=== PATIENT | male | born 1930 ===

== ENCOUNTER 2017-05-30 13:36 | Emergency (ER) | payer MEDICARE, BC ==
--- NOTE | 2017-05-30 16:00 | UC ---
Skin Complaint HPI - HPI Summary HPI Summary: 86 YEAR OLD MALE PRESENTS WITH A RASH ON HIS LEFT LOWER LEG. - History of Current Complaint Chief Complaint: [employer] Time Seen by Provider: 05/30/17 15:56 Stated Complaint: SKIN COMPLAINT - Allergy/Home Medications Allergies/Adverse Reactions: Allergies Allergy/AdvReac Type Severity Reaction Status Date / Time No Known Allergies Allergy Verified 08/04/14 16:13 Home Medications: Home Medications Apixaban* [Eliquis*] 5 mg PO BID 05/30/17 [History Confirmed 05/30/17] Hydrochlorothiazide TAB* [Hydrodiuril TAB*] 25 mg PO BID 05/30/17 [History Confirmed 05/30/17] Ramipril CAP* [Altace CAP*] 1 tab PO DAILY 05/30/17 [History Confirmed 05/30/17] Review of Systems Constitutional: Negative Skin: Rash, Other - LEFT LOWER LEG Eyes: Negative ENT: Negative Respiratory: Negative Cardiovascular: Negative Gastrointestinal: Negative Genitourinary: Negative Motor: Negative Neurovascular: Negative Musculoskeletal: Negative Neurological: Negative Psychological: Negative All Other Systems Reviewed And Are Negative: Yes PMH/Surg Hx/FS Hx/Imm Hx - Surgical History Surgical History: Yes Surgery Procedure, Year, and Place: bilat knee replacement - Social History Alcohol Use: None Substance Use Type: None Smoking Status (MU): Former Smoker When Did the Patient Quit Smoking/Using Tobacco: 60 years ago Household Exposure Type: Cigarettes Physical Exam Triage Information Reviewed: Yes Vital Signs: Initial Vital Signs Temp 36.5 C 05/30/17 15:38 Pulse 66 05/30/17 15:38 Resp 16 05/30/17 15:38 BP 133/59 05/30/17 15:38 Pulse Ox 97 05/30/17 15:38 Eye Exam: Normal ENT Exam: Normal Dental Exam: Normal Neck exam: Normal Neck: Positive: 1 Respiratory Exam: Normal Cardiovascular Exam: Normal Abdominal Exam: Normal Musculoskeletal Exam: Normal Neurological Exam: Normal Psychological Exam: Normal Skin: Positive: rashes - LEFT LOWER LEG Course/Dx - Differential Diagnoses - Skin Complaint Differential Diagnoses: Erythema Multiforme, Tick Born Illness - Diagnoses Provider Diagnoses: RASH LEFT LOWER LEG. INSECT BITE Discharge - Discharge Plan Condition: Stable Disposition: HOME Prescriptions: DOXYcycline CAP(*) [DOXYcycline 100MG CAP(*)] 100 mg PO BID #56 cap Patient Education Materials: Lyme Disease (ED), Tick Bite (ED) Referrals: Rodrigo Whalen MD [Primary Care Provider] - If Needed
[2017-05-30 16:05] VITALS: BP 133/59
== END 2017-05-30 16:27 | disposition home or self-care (01) ==
LOC: UCCORT 13:36
DX: S80.862A Insect bite (nonvenomous), left lower leg, initial encounter (principal); R21 Rash and other nonspecific skin eruption; W57.XXXA Bitten or stung by nonvenomous insect and other nonvenomous arthropods, initial encounter; Y92.9 Unspecified place or not applicable; Z87.891 Personal history of nicotine dependence; Z79.01 Long term (current) use of anticoagulants
CPT/HCPCS: 86618; 99212; G0463